=== PATIENT | male | born 1955 | race Caucasian/White ===

== ENCOUNTER → 2021-09-05 09:40 | Outpatient (BNVA) | payer OTHER, SELFPAY | PROVIDERS: PCP Family Medicine; Visit Provider Psychiatry & Neurology Neurology | DX: Z13.89 Encounter for screening for other disorder (principal) ==

== ENCOUNTER → 2022-08-30 11:12 | Outpatient (BNVA) | payer OTHER, SELFPAY | PROVIDERS: PCP Family Medicine; Visit Provider Psychiatry & Neurology Neurology | DX: G20 Parkinson's disease (principal); G47.52 REM sleep behavior disorder; E66.9 Obesity, unspecified ==

== ENCOUNTER 2023-01-02 10:27 | Outpatient (AMB) | payer OTHER, SELFPAY ==
[2023-01-02 10:29] VITALS: BP 142/96; PULSE 61; O2SAT 96; BMI 35.2
--- NOTE | 2023-01-02 10:29 | A.OFFVIS_ITS ---
Intake Vital Signs 01/02/23 10:29 Height 5 ft 11.5 in Weight 256 lb 2 oz BMI 35.2 BP 142/96 H Blood Pressure Location Lt brachial Position Sitting Pulse 61 Pulse Source Pulse Oximeter Pulse Oximetry (%) 96 Oxygen Delivery Method Room Air Intake Visit Reasons: 4m follow up-confirmed Intake Note: Pt presents as a 4 month f/u. 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: No Allergies grass pollen Allergy (Unknown, Verified 01/02/23 10:33) Unknown Medication List - Last Reconciled 01/02/23 by Humaira Angeles MD atorvastatin 40 mg PO DAILY carbidopa-levodopa 25-100 mg (Sinemet) 1 tab PO QID 90 days coenzyme Q10 (Co Q-10) 200 mg PO DAILY multivitamin 1 tab PO DAILY propranolol ER 120 mg PO BEDTIME selegiline HCl 5 mg PO QAM tamsulosin 0.4 mg PO DAILY zinc oxide-zinc citrate mg PO HPI HPI Comments History of Present Illness Details 67y/o male comes for follow up of his parkinsons disease, tremors and REM behavior disorder.He reports no change He retired from his job He still has REM behavior disorder - better with melatonin. the episodes are mild 1/2 weeks He sleeps well No constipation He has occasional dizziness in the morning.No falls He is independent in all his ADLS. Mood is stable , worries about his weight . His writing is smaller He does not exercise.He reports snoring daytime fatigue [facility] Medical History (Updated 01/02/23 @ 10:46 by Humaira Angeles MD) HTN (hypertension) Hyperlipidemia Obesity Snoring Surgical History H/O hernia repair Family History Father Cancer Leukemia Mother Diabetes Social History Alcohol intake: current Alcohol intake frequency: a few times a month Alcohol type: beer Patient Tobacco Use Status: Never used Tobacco Use of substances other than those prescribed or required for medical reasons: No Physical Exam Vital Signs: Last Vital Signs Pulse 61 01/02/23 10:29 BP 142/96 H 01/02/23 10:29 Pulse Ox 96 01/02/23 10:29 Oxygen Delivery Method Room Air 01/02/23 10:29 BMI result Body Mass Index 35.2 Const General: cooperative, healthy appearing and no acute distress Nutritional Appearance: obese Orientation/consciousness: patient oriented x3 HEENT Head: Yes normal to inspection Neuro Other: Mild decreased blink and facial expression Voice- normal- mild hypophonia Right UE high amplitude rest tremors Fine Finger movements - mild decrease R>L Alternating hand movements - decreased darrian Hand movements - decreased darrian Foot taps- decreased darrian No cog wheel rigidity gait - mild slowness and decreased arm swing R>L General: patient oriented x3 and no focal motor deficits Cranial nerves: Yes CN's II-XII intact bilaterally, Yes Bilaterally intact EOM present, Yes Normal facial strength present and Yes Midline tongue present Cognition (Neuro): abnormal cognition (repeats questions frequently) Motor exam (neuro): 5/5 motor strength present throughout and Normal motor muscle tone present throughout Coordination: [id number] test normal Assessment & Plan Assessment & Plan (1) Parkinson's disease: Code(s): G20 - Parkinson's disease (2) REM behavioral disorder: Code(s): G47.52 - REM sleep behavior disorder (3) Obesity: Code(s): E66.9 - Obesity, unspecified (4) Snoring: Code(s): R06.83 - Snoring Plan Continue sinemet 25/100 qid selegelline 5mg qd melatonin 3-5 mg qhs Increase exercise Nutrition - discussed about increasing protien , vegetable, fruits and decreased carbohydrate and fat intake. Sleep study to evaluate for sleep apnea. Orders: Orders RT home sleep study Today G47.52 - REM sleep behavior disorder, R06.83 - Snoring Coding Level of Care Code Est Pt Level 4 (67745) Diagnoses Parkinson's disease G20 REM behavioral disorder G47.52 Obesity E66.9 Snoring R06.83
== END 2023-01-02 10:52 | disposition home or self-care (01) ==
PROVIDERS: Visit Provider Psychiatry & Neurology Neurology
DX: G20 Parkinson's disease (principal); G47.52 REM sleep behavior disorder; E66.9 Obesity, unspecified; R06.83 Snoring
CPT/HCPCS: 99214

== ENCOUNTER → 2023-01-02 10:27 | Outpatient (BNVA) | payer OTHER, SELFPAY | PROVIDERS: Visit Provider Psychiatry & Neurology Neurology | DX: G20 Parkinson's disease (principal); G47.52 REM sleep behavior disorder; E66.9 Obesity, unspecified ==

== ENCOUNTER → 2023-02-20 13:37 | Outpatient (REF) | payer MEDICARE, SELFPAY | LOC: HO.SL 13:37 | PROVIDERS: PCP Family Medicine; Visit Provider Psychiatry & Neurology Neurology | DX: G47.52 REM sleep behavior disorder (principal); G47.10 Hypersomnia, unspecified; R06.83 Snoring | CPT/HCPCS: 95806 ==

== ENCOUNTER → 2023-02-20 13:53 | Outpatient (BNV) | payer MEDICARE, SELFPAY | PROVIDERS: PCP Family Medicine; Visit Provider Psychiatry & Neurology Neurology | DX: G47.10 Hypersomnia, unspecified (principal) | CPT/HCPCS: 95806 ==

== ENCOUNTER 2023-07-12 11:14 | Outpatient (AMB) | payer OTHER, SELFPAY ==
--- NOTE | 2023-07-12 11:20 | A.OFFVIS_ITS ---
Intake Vital Signs 07/12/23 11:21 Height 5 ft 11 in Weight 256 lb BMI 35.7 BP 142/88 H Blood Pressure Location Lt brachial Position Sitting Intake Visit Reasons: 6m follow up-CONF Intake Note: Patient presents for 6 month follow up for Parkinson's. 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 He is stable , no worsening . His home sleep test was normal . He reports no change He retired from his job He still has REM behavior disorder - better with melatonin. the episodes are mild 1/2 weeks He sleeps well No constipation He has occasional dizziness in the morning.No falls He is independent in all his ADLS. Mood is stable , worries about his weight . His writing is smaller He does not exercise.He reports snoring daytime fatigue [facility] Medical History (Updated 07/12/23 @ 11:38 by Humaira Angeles MD) Parkinson's disease without dyskinesia Snoring Obesity Hyperlipidemia HTN (hypertension) Surgical History H/O hernia repair Family History Father Cancer Leukemia Mother Diabetes Social History Alcohol intake: current Alcohol intake frequency: a few times a month Alcohol type: beer Patient Tobacco Use Status: Never used Tobacco Physical Exam Vital Signs: Last Vital Signs BP 142/88 H 07/12/23 11:21 BMI result Body Mass Index 35.7 Const General: cooperative, healthy appearing and no acute distress Nutritional Appearance: obese Orientation/consciousness: patient oriented x3 HEENT Head: Yes normal to inspection Neuro Other: Mild decreased blink and facial expression Voice- normal- mild hypophonia Right UE high amplitude rest tremors Fine Finger movements - mild decrease R>L Alternating hand movements - decreased darrian Hand movements - decreased darrian Foot taps- decreased darrian No cog wheel rigidity gait - mild slowness and decreased arm swing R>L General: patient oriented x3 and no focal motor deficits Cranial nerves: Yes CN's II-XII intact bilaterally, Yes Bilaterally intact EOM present, Yes Normal facial strength present and Yes Midline tongue present Cognition (Neuro): abnormal cognition (repeats questions frequently) Motor exam (neuro): 5/5 motor strength present throughout and Normal motor muscle tone present throughout Coordination: [id number] test normal Assessment & Plan Assessment & Plan (1) Parkinson's disease without dyskinesia: Code(s): G20.A1 - Parkinson's disease without dyskinesia, without mention of fluctuations (2) REM behavioral disorder: Code(s): G47.52 - REM sleep behavior disorder Plan Continue sinemet 25/100 qid selegelline 5mg qd melatonin 3-5 mg qhs Increase exercise Nutrition - discussed about increasing protien , vegetable, fruits and decreased carbohydrate and fat intake. Sleep study to evaluate for sleep apnea. Coding Level of Care Code Est Pt Level 4 (97253) Diagnoses Parkinson's disease without dyskinesia G20.A1 REM behavioral disorder G47.52
[2023-07-12 11:21] VITALS: BP 142/88; BMI 35.7
== END 2023-07-12 11:42 | disposition home or self-care (01) ==
PROVIDERS: PCP Family Medicine; Visit Provider Psychiatry & Neurology Neurology
DX: G20.A1 Parkinson's disease without dyskinesia, without mention of fluctuations (principal); G47.52 REM sleep behavior disorder
CPT/HCPCS: 99214

== ENCOUNTER → 2023-07-12 11:14 | Outpatient (BNVA) | payer OTHER, SELFPAY | PROVIDERS: PCP Family Medicine; Visit Provider Psychiatry & Neurology Neurology | DX: G47.52 REM sleep behavior disorder (principal); E66.9 Obesity, unspecified; R06.83 Snoring ==

== ENCOUNTER 2024-01-10 11:21 | Outpatient (AMB) | payer OTHER, SELFPAY ==
--- NOTE | 2024-01-10 11:24 | MHC.OFFVIS ---
Vital Signs 01/10/24 11:25 Height 5 ft 11 in Weight 251 lb 3 oz BMI 35.0 BP 126/72 Blood Pressure Location Rt brachial Position Sitting Respiration 16 Pulse 65 Pulse Source Pulse Oximeter Pulse Oximetry (%) 96 Oxygen Delivery Method Room Air Intake Visit Reasons: 6 month F/U Intake Note: Pt presents for 6 month follow up for Parkinson's. 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: No Allergies grass pollen Allergy (Unknown, Verified 01/10/24 11:24) Unknown Medication List - Last Reconciled 01/10/24 by Humaira Angeles MD atorvastatin 40 mg PO DAILY carbidopa-levodopa 25-100 mg (Sinemet) 1 tab PO QID 90 days coenzyme Q10 (Co Q-10) 200 mg PO DAILY multivitamin 1 tab PO DAILY propranolol ER 120 mg PO BEDTIME selegiline HCl 5 mg PO QAM tamsulosin 0.4 mg PO DAILY zinc citrate, zinc oxide mg PO HPI Comments Details: 68y/o male comes for follow up of his parkinsons disease, tremors and REM behavior disorder.He feels his tremors are worse, he has noticed some tremor sin his legs His home sleep test was normal . He retired from his job He still has REM behavior disorder - better with melatonin. the episodes are mild 1/2 weeks. He still has vivid dreams. He feels lonely - his mother 2 years ago and his in 2011. He sleeps well Mild constipation He has occasional dizziness in the morning.No falls He is independent in all his ADLS. Mood is stable , worries about his weight . His writing is smaller He does not exercise.He reports snoring daytime fatigue [facility] Medical History Parkinson's disease without dyskinesia Snoring Obesity Hyperlipidemia HTN (hypertension) Surgical History H/O hernia repair Family History Father Cancer Leukemia Mother Diabetes Social History Alcohol intake: current Alcohol intake frequency: a few times a month Alcohol type: beer Patient Tobacco Use Status: Never used Tobacco Physical Exam Vital Signs: Last Vital Signs Pulse 65 01/10/24 11:25 Resp 16 01/10/24 11:25 BP 126/72 01/10/24 11:25 Pulse Ox 96 01/10/24 11:25 Oxygen Delivery Method Room Air 01/10/24 11:25 BMI result Body Mass Index 35.0 Const General: cooperative, healthy appearing and no acute distress Nutritional Appearance: obese Orientation/consciousness: patient oriented x3 HEENT Head: Yes normal to inspection Neuro Other: Mild decreased blink and facial expression Voice- normal- mild hypophonia Right UE high amplitude rest tremors Fine Finger movements - mild decrease R>L Alternating hand movements - decreased darrian Hand movements - decreased darrian Foot taps- decreased darrian No cog wheel rigidity gait - mild slowness and decreased arm swing R>L General: patient oriented x3 and no focal motor deficits Cranial nerves: Yes CN's II-XII intact bilaterally, Yes Bilaterally intact EOM present, Yes Normal facial strength present and Yes Midline tongue present Cognition (Neuro): abnormal cognition (repeats questions frequently) Motor exam (neuro): 5/5 motor strength present throughout and Normal motor muscle tone present throughout Coordination: [id number] test normal Assessment & Plan Assessment & Plan (1) Parkinson's disease without dyskinesia: Code(s): G20.A1 - Parkinson's disease without dyskinesia, without mention of fluctuations Category: Medical (2) REM behavioral disorder: Code(s): G47.52 - REM sleep behavior disorder Category: Medical Plan Continue sinemet 25/100 qid selegelline 5mg qd melatonin 3-5 mg qhs Increase exercise Nutrition - discussed about increasing protien , vegetable, fruits and decreased carbohydrate and fat intake. Sleep study to evaluate for sleep apnea. Orders: Orders RT PSG in-lab sleep study Today G47.52 - REM sleep behavior disorder, R06.83 - Snoring Coding Level of Care Code Est Pt Level 4 (80204) Complex EM visit Add On G2211 Diagnoses Parkinson's disease without dyskinesia G20.A1 REM behavioral disorder G47.52
[2024-01-10 11:25] VITALS: BP 126/72; PULSE 65; RESP 16; O2SAT 96; BMI 35.0
== END 2024-01-10 11:50 | disposition home or self-care (01) ==
PROVIDERS: PCP Family Medicine; Visit Provider Psychiatry & Neurology Neurology
DX: G20.A1 Parkinson's disease without dyskinesia, without mention of fluctuations (principal); G47.52 REM sleep behavior disorder
CPT/HCPCS: 99214; G2211

== ENCOUNTER → 2024-01-10 11:21 | Outpatient (BNVA) | payer OTHER, SELFPAY | PROVIDERS: PCP Family Medicine; Visit Provider Psychiatry & Neurology Neurology ==

== ENCOUNTER → 2024-02-08 19:30 | Outpatient (REF) | payer MEDICARE, SELFPAY | LOC: HO.SL 19:30 | PROVIDERS: PCP Family Medicine; Visit Provider Psychiatry & Neurology Neurology | DX: G47.52 REM sleep behavior disorder (principal); R06.83 Snoring | CPT/HCPCS: 95810 ==

== ENCOUNTER → 2024-02-08 22:41 | Outpatient (BNV) | payer MEDICARE, SELFPAY | PROVIDERS: PCP Family Medicine; Visit Provider Psychiatry & Neurology Neurology | DX: R06.83 Snoring (principal) | CPT/HCPCS: 95810 ==

== ENCOUNTER 2024-07-30 09:48 | Outpatient (AMB) | payer OTHER, SELFPAY ==
[2024-07-30 09:46] VITALS: BP 124/82; PULSE 63; O2SAT 98; BMI 35.4
--- NOTE | 2024-07-30 09:46 | MHC.OFFVIS ---
Vital Signs 07/30/24 09:46 Height 5 ft 11 in Weight 254 lb BMI 35.4 BP 124/82 Blood Pressure Location Rt brachial Position Sitting Pulse 63 Pulse Source Pulse Oximeter Pulse Oximetry (%) 98 Oxygen Delivery Method Room Air Intake Visit Reasons: 6 month F/U Intake Note: patient presents for follow up sleep study done 02/08/04 Allergies grass pollen Allergy (Unknown, Verified 07/30/24 09:50) Unknown Medication List - Last Reconciled 07/30/24 by Humaira Angeles MD atorvastatin 40 mg PO DAILY carbidopa-levodopa 25-100 mg (Sinemet) 1 tab PO QID 90 days coenzyme Q10 (Co Q-10) 200 mg PO DAILY multivitamin 1 tab PO DAILY propranolol ER 120 mg PO BEDTIME selegiline HCl 5 mg PO QAM tamsulosin 0.4 mg PO DAILY zinc citrate, zinc oxide mg PO HPI Comments Details: 68y/o male comes for follow up of his parkinsons disease, tremors and REM behavior disorder.He feels his tremors are mildly worse but does not bother him He retired from his job He still has REM behavior disorder - better with melatonin. the episodes are mild 1/2 weeks. He still has vivid dreams. He feels lonely - his mother 2 years ago and his in 2011. He sleeps well Mild constipation He has occasional dizziness in the morning.No falls He is independent in all his ADLS. Mood is stable , worries about his weight . His writing is smaller He does not exercise.He reports snoring daytime fatigue- home sleep test was normal [facility] Medical History Parkinson's disease without dyskinesia Snoring Obesity Hyperlipidemia HTN (hypertension) Surgical History H/O hernia repair Family History Father Cancer Leukemia Mother Diabetes Social History Alcohol intake: current Alcohol intake frequency: a few times a month Alcohol type: beer Patient Tobacco Use Status: Never used Tobacco Physical Exam Vital Signs: Last Vital Signs Pulse 63 07/30/24 09:46 BP 124/82 07/30/24 09:46 Pulse Ox 98 07/30/24 09:46 Oxygen Delivery Method Room Air 07/30/24 09:46 BMI result Body Mass Index 35.4 Const General: cooperative, healthy appearing and no acute distress Nutritional Appearance: obese Orientation/consciousness: patient oriented x3 HEENT Head: Yes normal to inspection Neuro Other: Mild decreased blink and facial expression Voice- normal- mild hypophonia Right UE high amplitude rest tremors Fine Finger movements - mild decrease R>L Alternating hand movements - decreased darrian Hand movements - decreased darrian Foot taps- decreased darrian No cog wheel rigidity gait - mild slowness and decreased arm swing R>L General: patient oriented x3 and no focal motor deficits Cranial nerves: Yes CN's II-XII intact bilaterally, Yes Bilaterally intact EOM present, Yes Normal facial strength present and Yes Midline tongue present Cognition (Neuro): abnormal cognition (repeats questions frequently) Motor exam (neuro): 5/5 motor strength present throughout and Normal motor muscle tone present throughout Coordination: [id number] test normal Assessment & Plan Assessment & Plan (1) Parkinson's disease without dyskinesia: Code(s): G20.A1 - Parkinson's disease without dyskinesia, without mention of fluctuations Category: Medical (2) REM behavioral disorder: Code(s): G47.52 - REM sleep behavior disorder Category: Medical Plan Continue sinemet 25/100 qid selegelline 5mg qd melatonin 3-5 mg qhs Increase exercise Nutrition - discussed about increasing protien , vegetable, fruits and decreased carbohydrate and fat intake. Coding Level of Care Code Est Pt Level 4 (91179) Complex EM visit Add On G2211 Diagnoses Parkinson's disease without dyskinesia G20.A1 REM behavioral disorder G47.52
== END 2024-07-30 10:10 | disposition home or self-care (01) ==
LOC: HO.HSMS 09:48
PROVIDERS: PCP Family Medicine; Visit Provider Psychiatry & Neurology Neurology
DX: G20.A1 Parkinson's disease without dyskinesia, without mention of fluctuations (principal); G47.52 REM sleep behavior disorder
CPT/HCPCS: 99214; G2211

== ENCOUNTER → 2024-07-30 09:48 | Outpatient (BNVA) | payer OTHER, SELFPAY | PROVIDERS: PCP Family Medicine; Visit Provider Psychiatry & Neurology Neurology | DX: G47.52 REM sleep behavior disorder (principal); R06.83 Snoring; G20.A1 Parkinson's disease without dyskinesia, without mention of fluctuations ==

== ENCOUNTER 2025-02-02 10:36 | Outpatient (AMB) | payer OTHER, SELFPAY ==
--- NOTE | 2025-02-02 10:45 | MHC.OFFVIS ---
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 He retired from his job He still has REM behavior disorder - better with melatonin. the episodes are mild 1/2 weeks. He still has vivid dreams. He feels lonely - his mother 2 years ago and his in 2011. He sleeps well Mild constipation He has occasional dizziness in the morning.No falls He is independent in all his ADLS. Mood is stable , worries about his weight . His writing is smaller He does not exercise.He reports snoring daytime fatigue- home sleep test was normal [facility] Medical History Parkinson's disease without dyskinesia Snoring Obesity Hyperlipidemia HTN (hypertension) Surgical History H/O hernia repair Family History Father Cancer Leukemia Mother Diabetes Social History Alcohol intake: current Alcohol intake frequency: a few times a month Alcohol type: beer Patient Tobacco Use Status: Never used Tobacco Physical Exam Vital Signs: Last Vital Signs Pulse 62 02/02/25 10:46 BP 136/84 02/02/25 10:46 Pulse Ox 98 02/02/25 10:46 Oxygen Delivery Method Room Air 02/02/25 10:46 BMI result Body Mass Index 34.2 Const General: cooperative, healthy appearing and no acute distress Nutritional Appearance: obese Orientation/consciousness: patient oriented x3 HEENT Head: Yes normal to inspection Neuro Other: Mild decreased blink and facial expression Voice- normal- mild hypophonia Right UE high amplitude rest tremors Fine Finger movements - mild decrease R>L Alternating hand movements - decreased darrian Hand movements - decreased darrian Foot taps- decreased darrian No cog wheel rigidity gait - mild slowness and decreased arm swing R>L General: patient oriented x3 and no focal motor deficits Cranial nerves: Yes CN's II-XII intact bilaterally, Yes Bilaterally intact EOM present, Yes Normal facial strength present and Yes Midline tongue present Cognition (Neuro): abnormal cognition (repeats questions frequently) Motor exam (neuro): 5/5 motor strength present throughout and Normal motor muscle tone present throughout Coordination: [id number] test normal Assessment & Plan Assessment & Plan (1) Parkinson's disease without dyskinesia: Code(s): G20.A1 - Parkinson's disease without dyskinesia, without mention of fluctuations Category: Medical (2) REM behavioral disorder: Code(s): G47.52 - REM sleep behavior disorder Category: Medical Plan Continue sinemet 25/100 qid selegelline 5mg qd melatonin 3-5 mg qhs Increase exercise Nutrition - discussed about increasing protien , vegetable, fruits and decreased carbohydrate and fat intake. Coding Level of Care Code Est Pt Level 4 (48859) Complex EM visit Add On G2211 Diagnoses Parkinson's disease without dyskinesia G20.A1 REM behavioral disorder G47.52
[2025-02-02 10:46] VITALS: BP 136/84; PULSE 62; O2SAT 98; BMI 34.2
== END 2025-02-02 11:41 | disposition home or self-care (01) ==
LOC: HO.HSMS 10:36
PROVIDERS: PCP Family Medicine; Visit Provider Psychiatry & Neurology Neurology
DX: G20.A1 Parkinson's disease without dyskinesia, without mention of fluctuations (principal); G47.52 REM sleep behavior disorder
CPT/HCPCS: 99214